=== PATIENT | male | born 1990 | race Caucasian/White ===

== ENCOUNTER 2020-02-10 13:54 | Outpatient (CLI) | payer OTHER, SELFPAY ==
--- NOTE | 2020-02-10 13:55 | XR_ITS ---
WS: [id number] Chest 2 views, 02/10/2020 Clinical Data: REGULATED PROGRAM MONITORING Comparison: PA and lateral chest, 02/10/2019. Findings: No nodules, masses or effusions are seen. The heart is normal. The pulmonary vascularity is not increased. No pneumonia or pneumothorax is seen. XR/XR chest 2V* [id number] Impression: Negative chest.
== END 2020-02-10 13:55 | disposition home or self-care (01) ==
LOC: RADWPI 13:55
PROVIDERS: Visit Provider Preventive Medicine Occupational Medicine
DX: Z13.6 Encounter for screening for cardiovascular disorders (principal)
CPT/HCPCS: 71046

== ENCOUNTER → 2020-10-14 12:33 | Outpatient (BNVA) | payer OTHER, SELFPAY | PROVIDERS: Visit Provider Surgery | DX: Z20.822 Contact with and (suspected) exposure to COVID-19 (principal); K40.90 Unilateral inguinal hernia, without obstruction or gangrene, not specified as recurrent | CPT/HCPCS: 87635 ==

== ENCOUNTER 2020-10-18 08:25 | Day surgery (SDC) | payer OTHER, SELFPAY ==
[2020-10-18] VITALS (8 sets, daily range): BP systolic 92–141; BP diastolic 70–88; PULSE 58–82; RESP 18–20; TEMP 36.2–36.8; O2SAT 93–98
[2020-10-18] MEDS: sodium chloride 0.9% 1,000 ML 30 ML IV (09:14)
--- NOTE | 2020-10-18 09:25 | ANES.PREANE2 ---
Pre-Anesthetic Assessment Pre-Anesthetic Assessment: Height/Weight: Height 1.7 m Weight 63.503 kg Temp Pulse Resp BP Pulse Ox 97.5 F L 76 18 124/82 98 10/18/20 09:16 10/18/20 09:16 10/18/20 09:16 10/18/20 09:16 10/18/20 09:16 Preop Diagnosis: Right inguinal hernia Proposed Procedure: Operation Date: 10/18/20 10:00 Proposed Procedures p LAPAROSCPOIC POSS OPEN RIGHT INGUINAL HERNIA WITH MESH 92777 k40.90(Left) - Juancho Hu MD Familial anesthetic complications: Nonne Was Beta Kristal taken within 24 hours: N/A Was Clonidine taken within 24 hours: N/A Last intake: Intake Last Liquid Date 10/17/20 Last Liquid Time 21:30 Last Solid Date 10/17/20 Last Solid Time 18:30 Social: Social History: No alcohol and No tobacco Exam: Pre-Anes Outpt Exam: alert, oriented x 3, clear to auscultation bilaterally and regular rate & rhythm Airway: Cervical ROM: WNL MP: 3 Dentition: Partials and Other (poor dentitoin) Anesthetic Plan: ASA status: 1 Anesthesia: General Risk of > 500 ml blood loss (7ml/kg in children): No Meds/Allergies Current Medications: Current Medications Generic Name Dose Route Start Last Admin Trade Name Freq PRN Reason Stop Dose Admin Sodium Chloride 1,000 mls @ 30 ml s/hr 10/18/20 08:45 10/18/20 09:14 Sodium Chloride 0.9% IV 10/19/20 08:44 30 mls/hr .Q24H JORDIN Administration PFSH Anesthesia PFSH: Medical History History of benign bladder tumor Surgical History H/O cystoscopy History of appendectomy Family History Denies family history of Anesthesia complication Bleeding disorder Social History Smoking and tobacco status: never smoked Alcohol intake: current Alcohol intake frequency: holidays/special occasions only Data Anesthesia Cardiac Studies: No Data to Display
--- NOTE | 2020-10-18 09:41 | W.PM.OPSUD ---
Surgery/Procedure H&P Update DATE OF PROCEDURE: October 18, 2020 DATE H&P PERFORMED: 09/29/20 H&P UPDATE INFORMATION: I have reviewed H&P completed within last 30 days, I have examined patient prior to procedure and No changes to prior documentation PREOP DIAGNOSIS: Right inguinal hernia PLANNED PROCEDURE: Operation Date: 10/18/20 10:00 Proposed Procedures p LAPAROSCPOIC POSS OPEN RIGHT INGUINAL HERNIA WITH MESH 58628 k40.90(Left) - Juancho Hu MD
[2020-10-18] MEDS: vancomycin 1,000 MG in sodium chloride 0.9% 250 ML 250 MG IV (10:50)
--- NOTE | 2020-10-18 13:02 | PM.OP ---
Operative Report Date of procedure: October 18, 2020 Pre-op Diagnosis: Right inguinal hernia Post-op Diagnosis: Reducible indirect right inguinal hernia Procedure Done: Laparoscopic total extraperitoneal repair of indirect reducible right inguinal hernia with Surgimax 3D mesh measuring 16 x 11 cm Pathology: none sent Surgeon: Juancho Hu Anesthesia: General Condition: stable Disposition: PACU Procedure: The patient was taken to the operating room. After IV antibiotic was administered, the abdomen was prepped and draped in a sterile manner. Using a 15 blade, a 1.0 cm transverse incision was made infraumbilically on the right side. Subcutaneous tissue was divided using electrocautery and the anterior rectus sheath divided using an 11 blade. The rectus muscle was retracted laterally and the extraperitoneal space identified. A 11 mm port was placed and 12 mm of pneumoperitoneum was created. A 10 mm 30? scope was introduced and the retrorectus space was opened using the camera up to the pubic symphysis and 5 mm ports were placed in the midline, one 2-fingerbreadths above the pubic symphysis and the other midway between these two ports under direct visualization. Blunt dissection was carried out to open up the tissue in the midline and to the pubic symphysis, which was identified. The dissection was then carried laterally where the iliopubic tract was identified. There was no femoral, obturator or direct hernia noted. The inferior epigastric artery was identified and dissection was carried posterior to it and laterally, the space was opened up to the level of the umbilicus superior to the anterior superior iliac spine. I then proceeded to dissect out the spermatic cord and the indirect hernial sac was reduced . 16 x 11cm Surgimax 3D mesh was rolled and introduced through the 10 mm port and then rolled laterally and apposed well against the abdominal wall to cover the myopectineal orifice completely. The mesh was secured with Securestraps. 10 Cc of 0.5% Marcaine was infiltrated into the preperitoneal space. The extraperitoneal space was desufflated under direct visualization to ensure no slippage of hernial sac under the mesh. All ports were removed, the anterior rectus fascia at the infraumbilical port closed using figure of eight 0 Vicryl sutures, subcutaneous tissue approximated using 3-0 Vicryl sutures and skin at all three port sites were closed using running subcuticular 4-0 Monocryl sutures and Dermabond. 10 mL of 0.5% Marcaine was infiltrated at the port sites. The patient was stable throughout the procedure.
[2020-10-18] MEDS: HYDROcodone-acetaminophen 5-325 mg Tablet 1 TAB PO (13:51)
--- NOTE | 2020-10-18 20:26 | ANE.PACU2 ---
Inpatient post-anesthesia follow up: Airway intact: Yes Vital signs: Temperature 97.9 F Pulse Rate 58 Respiratory Rate 18 Blood Pressure 104/80 Pulse Oximetry 95 Oxygen Delivery Me thod Room Air Oxygen Flow Rate Fraction of Inspir ed Oxygen Hydration adequate: Yes Nausea and vomiting: No Pain level: 2 Mental status: Baseline
== END 2020-10-18 14:10 | disposition home or self-care (01) ==
PROVIDERS: Visit Provider Surgery
PROC: (CPT 49650; principal; 2020-10-18 09:50)
DX: K40.90 Unilateral inguinal hernia, without obstruction or gangrene, not specified as recurrent (principal)
CPT/HCPCS: 49650; 96365; C1781; J1100; J1885; J2405; J2704; J2710; J3010; J3370; J3490; J7030; J7050

== ENCOUNTER 2020-12-20 10:22 | Emergency (ER) | payer OTHER, SELFPAY ==
[2020-12-20 11:23] VITALS: BP 120/85; PULSE 82; RESP 18; TEMP 36.7; O2SAT 100; BMI 22.2
[2020-12-20 12:25] LABS: Add Urine Microscopic? NO; Charge for UA Resulting for Rev
[2020-12-20 12:31] LABS: Bilirubin Urine Neg (Negative); Blood Urine Neg (Negative); Glucose Urine UA Norm (Normal); Ketones Urine Negative (Negative); Leukocyte Esterase Urine Negative (Negative); Nitrate Urine Negative (Negative); Protein Urine Neg (Negative); Urine Appearance Clear (CLEAR); Urine Color Yellow (Yellow); Urobilinogen Urine Norm (Negative); pH Urine 5 (5-7)
== END 2020-12-20 12:29 ==
PROVIDERS: Emergency Provider Family Medicine
DX: Z53.21 Procedure and treatment not carried out due to patient leaving prior to being seen by health care provider (principal)
CPT/HCPCS: 81003

== ENCOUNTER 2022-07-15 08:05 | Outpatient (CLI) | payer OTHER, SELFPAY ==
--- NOTE | 2022-07-15 08:24 | XR_ITS ---
WS: [id number] Exam: XR chest 2V* [id number] Date/Time of Exam: 07/15/2022 8:30 AM Reason For Exam: REGULATED PROGRAM MONITORING Comparison 12/20/2020. Findings: The lungs are clear and fully expanded. Costophrenic angles are sharp. No infiltrates. Bronchovascula r relief appears normal. Cardiac silhouette is unremarkable. Bony elements are intact. XR/XR chest 2V* [id number] IMPRESSION: Unremarkable chest radiograph.
== END 2022-07-15 08:06 | disposition home or self-care (01) ==
LOC: RAD 08:09
PROVIDERS: Visit Provider Preventive Medicine Occupational Medicine
DX: Z13.6 Encounter for screening for cardiovascular disorders (principal)
CPT/HCPCS: 71046

== ENCOUNTER → 2024-08-24 19:12 | Outpatient (BNVA) | payer OTHER, SELFPAY | PROVIDERS: Visit Provider Emergency Medicine | DX: J06.9 Acute upper respiratory infection, unspecified (principal) | CPT/HCPCS: 87400 ==